=== PATIENT | female | born 1950 | race Caucasian/White ===

== ENCOUNTER 2017-11-11 14:13 | Outpatient (CLI) | payer MEDICARE | END 2017-11-11 14:14 | disposition home or self-care (01) | LOC: BICMAMMO 14:13 | PROVIDERS: ATTEND Nurse Practitioner Family | DX: Z12.31 Encounter for screening mammogram for malignant neoplasm of breast (principal); Z80.3 Family history of malignant neoplasm of breast | CPT/HCPCS: 77063; 77067 ==

== ENCOUNTER 2018-04-16 10:17 | Outpatient (CLI) | payer MEDICARE ==
--- NOTE | 2018-04-16 11:37 | RAD ---
CERVICAL SPINE SERIES SIX VIEWS INCLUDING FLEXION AND EXTENSION: History: Neck pain x several weeks. FINDINGS: The vertebral bodies maintain normal height. There is a minimal anterolisthesis of C4 on C5 in flexio n. There is some mild disc narrowing at C5-6. Degenerative facet changes are present. Anterolisthesis of C4 on C5 reduces in extension. IMPRESSION: Arthritic changes of the spine as discussed above. POS: [facility]
== END 2018-04-16 10:18 | disposition home or self-care (01) ==
LOC: SCSRAD 10:17
PROVIDERS: ATTEND Nurse Practitioner Family
DX: M54.2 Cervicalgia (principal); M47.892 Other spondylosis, cervical region
CPT/HCPCS: 72050

== ENCOUNTER 2018-05-20 12:45 | Outpatient (CLI) | payer MEDICARE ==
--- NOTE | 2018-05-20 17:36 | MRI ---
MRI CERVICAL SPINE WITHOUT CONTRAST: Date: 05/20/18 HISTORY: M47.812, cervical spondylosis without myelopathy. Neck pain. Left shoulder pain. COMPARISON: Radiograph dated 04/16/18. FINDINGS: The cerebellar tonsils terminate at the level of the foramen magnum. There is focal increased signal within the cord at the level of C5-6 due to a posterior disc protrusion. There is a focal disc osteop hyte complex and ligamentum flavum hypertrophy. There is complete effacement of the dorsal and ventra l CSF spaces at this level. No marrow infiltrative process. The paraspinal musculature is unremarkable. Paraspinal soft tissues a re unremarkable. Levels are as follows: C2-3: Mild disc desiccation. Mild uncinate process hypertrophy on the right, worse on the left. No s ignificant spinal canal narrowing. C3-4: Low grade posterior disc bulge, broad based. Mild facet hypertrophy. No significant neural for aminal or spinal canal narrowing. C4-5: There is a low grade posterior disc bulge, right paracentral. Moderate facet arthrosis. No sig nificant neural foraminal or spinal canal narrowing. There is mild uncinate process hypertrophy. Ther e is mild bilateral neural foraminal narrowing. C5-6: Broad based posterior disc osteophyte complex extending from the central, bilateral central, a nd bilateral subforaminal zones. There is also ligamentum flavum hypertrophy. There is abutment of th e cord. Spinal canal measures approximately 6.0 mm. Moderate uncinate process hypertrophy. Moderate b ilateral neural foraminal narrowing with abutment of the exiting and traversing nerve roots. C6-7: Mild disc desiccation. No neural foraminal or spinal canal narrowing. IMPRESSION: Spondylosis centered at the C5-6 level with a broad based posterior disc osteophyte complex, as well as ligamentum flavum hypertrophy, abutting the cord, which has mild increased T2 signal, as well as m oderate bilateral neural foraminal narrowing with abutment of the exiting and traversing nerve roots. CODE T. POS: [facility]
== END 2018-05-20 12:46 | disposition home or self-care (01) ==
LOC: TBSIIMAG 12:45
PROVIDERS: ATTEND Neurological Surgery
DX: M47.812 Spondylosis without myelopathy or radiculopathy, cervical region (principal); M48.02 Spinal stenosis, cervical region
CPT/HCPCS: 72141

== ENCOUNTER 2018-06-05 08:50 | Outpatient (CLI) | payer MEDICARE ==
[2018-06-05 09:49] LABS: Hemoglobin 16.3 g/dL (12.0-16.0); Mean Corpuscular HGB CONC 34.5 g/dL (32.0-36.0); Mean Corpuscular Volume 92.7 fL (78.0-98.0); Mean Platelet Volume 7.8 fL (7.4-10.4); Platelet Count 228 thou/uL (130-400); RBC Distribution Width 11.4 % (11.5-14.5); Red Blood Cell (RBC) Count 5.08 mill/uL (4.20-5.40); White Blood Cell (WBC) Count 7.8 thou/uL (4.8-10.8)
[2018-06-05 10:09] LABS: Anion Gap 15 mmol/L (10-20); BUN (Urea Nitrogen) 9 mg/dL (9.8-20.1); Calc. Creatinine Clearance 0 mL/min (70-130); Carbon Dioxide 27 mmol/L (23-31); Chloride 100 mmol/L (98-107); Estimated GFR-MDRD 69; Glucose 184 mg/dL (80-115); Potassium 3.3 mmol/L (3.5-5.1); Sodium 139 mmol/L (136-145)
== END 2018-06-05 08:51 | disposition home or self-care (01) ==
LOC: LABBT 08:50
PROVIDERS: ATTEND Neurological Surgery
DX: Z01.818 Encounter for other preprocedural examination (principal); M54.12 Radiculopathy, cervical region
CPT/HCPCS: 80048; 85027; 93005; 93010

== ENCOUNTER 2018-06-11 05:43 | Day surgery (SDC) | payer MEDICARE ==
[2018-06-05 09:03] VITALS: BMI 29.1
[2018-06-11] MEDS ORDERED: Sodium Chloride 0.9% 10 ML ONE (06:29)
[2018-06-11] MEDS ORDERED: Fentanyl 100 MCG/2 ML VIAL ONE ×3 (06:44→08:35)
[2018-06-11] MEDS ORDERED: CEFAZOLIN 2 GM/50 ML BAG ONE (06:52)
[2018-06-11] MEDS ORDERED: Lidocaine 1% (PF) 30 ML VIAL ONE (07:12)
[2018-06-11] MEDS ORDERED: Lidocaine 4% Topical Sol 50 ML BOT ONE (07:13)
[2018-06-11] MEDS ORDERED: Promethazine HCl 25 MG/ML VIAL ONE (08:38)
--- NOTE | 2018-06-11 09:42 | OP ---
DATE OF PROCEDURE: 06/11/2018 [employer] OPERATOR: Norm. PROCEDURES PERFORMED: Anterior cervical diskectomy, C5-C6, interbody arthrodesis, intervertebral biomechanical device, local morselized autograft, demineralized bone matrix, and anterior titanium instrumentation, C5-C6. DESCRIPTION OF PROCEDURE: The patient was brought to the operating room and intubated. She was positioned supine in modest extension on a gel-filled donut. An incision was made in the right precervical area and dissected medial to the sternocleidomastoid muscle. We identified the anterior cervical spinal and the level was confirmed by x-ray. We placed distraction across the disk spaces and using operative microscope and microdissection technique, completely decompressed the neural elements from foramen to foramen at C5-C6. Next, the bony endplates were decorticated for the purpose of arthrodesis and appropriate-sized intervertebral biomechanical PEEK device was brought into the field and filled with demineralized bone matrix, local morselized autograft, and tapped into place securely at C5-C6. Next, an anterior plate was brought into the field and secured to C5 and C6 using two 14 mm screws at each level. The wound was extensively irrigated and maximum hemostasis was secured. The wound was closed in anatomic layers. Job ID: [id number]
== END 2018-06-11 12:05 ==
LOC: SDC 05:43
PROVIDERS: ATTEND Neurological Surgery
PROC: 0RB30ZZ Excision of Cervical Vertebral Disc, Open Approach (ICD-10-PCS; principal; 2018-06-11)
PROC: 01N10ZZ Release Cervical Nerve, Open Approach (ICD-10-PCS; 2018-06-11)
PROC: 0PB30ZZ Excision of Cervical Vertebra, Open Approach (ICD-10-PCS; 2018-06-11)
PROC: 0RG10A0 Fusion of Cervical Vertebral Joint with Interbody Fusion Device, Anterior Approach, Anterior Column, Open Approach (ICD-10-PCS; 2018-06-11)
PROC: 0RB30ZZ Excision of Cervical Vertebral Disc, Open Approach (ICD-10-PCS; 2018-06-11)
PROC: 0RG1070 Fusion of Cervical Vertebral Joint with Autologous Tissue Substitute, Anterior Approach, Anterior Column, Open Approach (ICD-10-PCS; 2018-06-11)
DX: M50.122 Cervical disc disorder at C5-C6 level with radiculopathy (principal); M51.86 Other intervertebral disc disorders, lumbar region; I10 Essential (primary) hypertension; K21.9 Gastro-esophageal reflux disease without esophagitis; K58.9 Irritable bowel syndrome, unspecified; E78.5 Hyperlipidemia, unspecified; M19.90 Unspecified osteoarthritis, unspecified site; Z88.8 Allergy status to other drugs, medicaments and biological substances; Z88.1 Allergy status to other antibiotic agents; Z88.3 Allergy status to other anti-infective agents; Z79.82 Long term (current) use of aspirin; Z79.899 Other long term (current) drug therapy
CPT/HCPCS: 76001; 96374; C1713; C1776; J0131; J2001; J2550; J3010; J3490

== ENCOUNTER 2018-06-27 09:45 | Outpatient (CLI) | payer MEDICARE ==
--- NOTE | 2018-06-27 10:13 | RAD ---
CERVICAL SPINE 3 VIEWS: Date: 06/27/18 HISTORY: 68-year-old female with history of cervical disc disease, follow-up surgery with some discomfort. COMPARISON: 04/16/18. FINDINGS: Anterior cervical fusion changes at C5-C6. Mild generalized spondylosis. No significant malalignment. Mild prevertebral soft tissue swelling. IMPRESSION: Anterior cervical fusion changes at C5-C6. Minimal spondylosis. No significant malalignment. POS: [facility]
== END 2018-06-27 09:46 | disposition home or self-care (01) ==
LOC: TBSIIMAG 09:45
PROVIDERS: ATTEND Neurological Surgery
DX: M50.90 Cervical disc disorder, unspecified, unspecified cervical region (principal); M47.812 Spondylosis without myelopathy or radiculopathy, cervical region; Z98.1 Arthrodesis status
CPT/HCPCS: 72040

== ENCOUNTER 2018-08-06 15:02 | Outpatient (CLI) | payer MEDICARE ==
--- NOTE | 2018-08-06 15:37 | RAD ---
CERVICAL SPINE THREE VIEWS: 08/06/2018 HISTORY: Cervical region disk degeneration. Followup neck surgery. COMPARISON: 06/27/2018 FINDINGS: Again noted are post surgical changes related to anterior cervical fusion at the C5-C6 level, with an terior plate and screws transfixing this level with an intradiskal prosthesis also again seen. There is no change in hardware, and there are no findings to suggest hardware complication. Vertebral bod y heights are within normal limits. There is no fracture or subluxation. There is slightly less pro minence of the soft tissues anterior to the level of post surgical change. No other interval change. IMPRESSION: Stable post surgical changes, cervical spine, related to anterior cervical fusion at the C5-C6 level. Soft tissue prominence seen in the prevertebral soft tissues, anterior to the region of post surgic al change, which has slightly decreased from the prior examination. POS: [facility]
== END 2018-08-06 15:03 | disposition home or self-care (01) ==
LOC: TBSIIMAG 15:02
PROVIDERS: ATTEND Neurological Surgery
DX: M50.30 Other cervical disc degeneration, unspecified cervical region (principal); Z98.1 Arthrodesis status
CPT/HCPCS: 72040

== ENCOUNTER 2018-08-22 07:35 | Outpatient (CLI) | payer MEDICARE ==
--- NOTE | 2018-08-22 10:22 | RAD ---
LUMBAR SPINE SERIES FOUR VIEWS WITH FLEXION AND EXTENSION: HISTORY: Back pain. Left leg pain. FINDINGS: The bones appear demineralized. The vertebral bodies are normal in height. There are degenerative o steophytes. There is moderate disk narrowing at L5-S1. Very limited motion is seen on either of the se flexion and extension views. No abnormal motion. No spondylolisthesis. There are arthritic peterson es of the facet joints. There are atherosclerotic changes of the aorta. IMPRESSION: Diffuse bony demineralization with arthritic changes of the spine with degenerative disk narrowing at L5-S1. POS: [facility]
--- NOTE | 2018-08-22 13:13 | MRI ---
MRI LUMBAR SPINE WITHOUT CONTRAST: HISTORY: Left leg and back pain. Lumbar disk disease. COMPARISON: None. FINDINGS: Appropriate T1 marrow signal intensity of the lumbar vertebrae. Lumbar spine vertebral body height i s maintained. There is no fracture. Heterogeneous marrow signal intensity, likely due to senescent change. No significant STIR hyperintensity to suggest edema or ligamentous injury. Appropriate signal intensity of the visualized solid organs. Exophytic cyst emanating from the lower pole left kidney is incompletely evaluated. Symmetric signal intensity of the psoas muscles and par aspinal muscles. The conus medullaris terminates at the lower aspect of L1. T12-L1: Adequate disk hydration. No significant central canal stenosis. The neural foramina are pa tent. L1-L2: Adequate disk hydration. No significant central canal stenosis. The neural foramina are pat ent. L2-L3: Adequate disk hydration. No significant central canal stenosis. The neural foramina are pat ent. L3-L4: Minimal disk desiccation. Generalized disk bulge, ligamentum flavum thickening, and facet hy pertrophy result in mild central canal stenosis. The neural foramina are patent bilaterally. L4-L5: Adequate disk hydration. No significant central canal stenosis. There is a small central di sk protrusion with associated T2 and STIR hyperintensity, compatible with an annular fissure. This a nnular fissure does extend into the left subarticular zone and abuts the traversing left L5 nerve davey t. Minimal ligamentum flavum thickening. Overall, minimal central canal stenosis. Mild bilateral f oraminal narrowing. L5-S1: Moderate loss of disk space height. Generalized disk bulge, ligamentum flavum thickening, an d facet hypertrophy result in mild central canal stenosis. Mild narrowing of both subarticular zones with mass effect, without obscuration of the bilateral traversing S1 nerve roots. Moderate bilatera l foraminal narrowing. IMPRESSION: 1. Degenerative changes of the lumbar spine, as above. There is an annular fissure that abuts the l eft subarticular zone at L4-L5. The fissure abuts the traversing left L5 nerve root. 2. Narrowing of both subarticular zones at L5-S1 with some mass effect without obscuration of dayanna sing bilateral S1 nerve roots. POS: [facility]
== END 2018-08-22 07:36 | disposition home or self-care (01) ==
LOC: TBSIIMAG 07:35
PROVIDERS: ATTEND Neurological Surgery
DX: M51.86 Other intervertebral disc disorders, lumbar region (principal); M48.07 Spinal stenosis, lumbosacral region; M47.816 Spondylosis without myelopathy or radiculopathy, lumbar region
CPT/HCPCS: 72110; 72148

== ENCOUNTER 2019-06-25 14:11 | Outpatient (CLI) | payer MEDICARE ==
--- NOTE | 2019-06-25 14:29 | RAD ---
XR Chest Pa Lat STANDARD HISTORY: Cough and congestion. COMPARISON: None. FINDINGS: Heart size within normal limits. There are atherosclerotic changes of the aorta. The lungs are clear of infiltrates. There are arthritic changes of the spine. IMPRESSION: No active intrathoracic disease.
== END 2019-06-25 14:12 | disposition home or self-care (01) ==
LOC: SCSRAD 14:11
PROVIDERS: ATTEND Nurse Practitioner Family
DX: J40 Bronchitis, not specified as acute or chronic (principal)
CPT/HCPCS: 71046

== ENCOUNTER 2020-12-08 08:47 | Outpatient (CLI) | payer MEDICARE | END 2020-12-08 08:48 | disposition home or self-care (01) | LOC: BICMAMMO 08:47 | PROVIDERS: ATTEND Family Medicine | DX: Z12.31 Encounter for screening mammogram for malignant neoplasm of breast (principal); Z13.820 Encounter for screening for osteoporosis; N95.9 Unspecified menopausal and perimenopausal disorder; E28.39 Other primary ovarian failure; M85.89 Other specified disorders of bone density and structure, multiple sites | CPT/HCPCS: 77063; 77067; 77080 ==

== ENCOUNTER 2021-12-11 08:51 | Outpatient (CLI) | payer MEDICARE | END 2021-12-11 08:52 | disposition home or self-care (01) | LOC: BICMAMMO 08:51 | PROVIDERS: ATTEND Internal Medicine | DX: Z12.31 Encounter for screening mammogram for malignant neoplasm of breast (principal) | CPT/HCPCS: 77063; 77067 ==